=== PATIENT | male | born 1935 | race Caucasian/White ===

== ENCOUNTER 2016-10-18 12:48 | Day surgery (SDC) | payer MEDICARE, OTHER ==
[~2016-10-18] VITALS: Ht 170.2 cm; Wt 89.2 kg
[2016-10-18] VITALS (10 sets, daily range): BP systolic 132–146; BP diastolic 79–95; PULSE 56–76; RESP 11–19; O2SAT 90–98
[~2016-10-18 12:48] MED LIST: ASPI-628 PO; Ampicillin 2,000 mg/50 mL NS Minibag Plus IV SCH; CHOL200047 PO; DONE10TA5 PO; Dexamethasone 4 mg/mL Inj IVPUSH PRN; EPHEDrine Sulfate 50 mg/mL Inj IVPUSH PRN; FINA5TAB9 PO; FLUT15.88 NS; Gentamicin Inj 140 MG in Dextrose 5% 100 ML IV SCH; HYDROmorphone 1 mg/mL Inj IVPUSH PRN; Labetalol 5 mg/mL 4 mL Inj IV PRN; Lactated Ringer's 1,000 ML IV SCH; Lactated Ringer's 500 ML IV PRN; MetoCLOpramide 5 mg/mL 2 mL Inj IVPUSH PRN; Mitomycin Inj 40 MG in Syringe 1 EACH IRRIGATION PRN; OMEG300C3 PO; OMEP-113 PO; Phenylephrine 10,000 mCg/mL Inj IVPUSH PRN; SERT20OR6 PO; fentaNYL-PF 50 mCg/mL 2 mL Inj IVPUSH PRN; hydrALAZINE 20 mg/mL Inj IVPUSH PRN
[2016-10-18] MEDS ORDERED: Glycopyrrolate 0.2 MG/ML 1mL Inj ONE (12:49)
[2016-10-18] MEDS ORDERED: Propofol 10,000 mCg/mL 20 mL Inj ONE (12:49)
[2016-10-18] MEDS ORDERED: Dexamethasone 4 mg/mL Inj ONE (12:49)
[2016-10-18] MEDS ORDERED: Lidocaine PF 1% 30 mL Inj ONE (12:49)
[2016-10-18] MEDS ORDERED: Ketamine 10 mg/mL 20 mL Inj ONE (12:49)
[2016-10-18] MEDS ORDERED: fentaNYL-PF 50 mCg/mL 2 mL Inj ONE (12:49)
[2016-10-18] MEDS ORDERED: Ondansetron 2 mg/mL 2 mL Inj ONE (12:49)
[2016-10-18] MEDS ORDERED: Lactated Ringer's 1,000 ML IV ONE (13:18)
--- NOTE | 2016-10-18 14:38 | PCM.HPANE ---
Patient Data Date of Service: Oct 18, 2016 Surgeon Admitting Provider: Attending Provider:Malvin Hobson MD Primary Care Physician:Alexsander Chapman MD Other Provider:Gianni Us Anesthesia Reason for Visit Gross Hematuria, Bladder Tumor, Urethral Lesion Ht/WT & BMI Height (Feet): 5 Height (Inches): 7.00 Weight (Kilograms): 89.2 Body Mass Index 30.00 Allergies Coded Allergies: oxycodone (Verified Allergy, Severe, Rash, 10/15/16) No Known Allergies (Verified Allergy, Unknown, 09/28/14) Past Anesthesia History Anesthesia History: Denies:: Abnormal Airway, Anesthesia Reactions, Difficult Intubation, Fam Anesthesia Reaction, Fam Malignant Hypertherm, Malignant Hyperthermia Diabetes History Hx Diabetes?: No MRSA MRSA: No Medications Blood Thinner: Aspirin Last Dose Blood Thinner: Oct 12, 2016 Hypertension Medication: No Home Meds Incl Beta Kendall: No Reported Medications Finasteride 5 Mg Tablet5 Mg PO DAILY 30 Days Ref 0 10/15/16 Sertraline HCl (Sertraline)20 Mg/1 Ml Oral.conc25 Mg PO DAILY #1 BOTTLE Ref 0 10/15/16 Fluticasone Propionate 50 Mcg/Actuation [place].susp15.8 Ml NS 10/15/16 Donepezil (Aricept)10 Mg Bgvptu04 Mg PO HS Ref 0 10/15/16 Cholecalciferol (Vitamin D3) (Vitamin D3)2,000 Unit Capsule6,000 Unit PO DAILY 09/28/14 Omeprazole Magnesium (Omeprazole)20 Mg Capsule.dr20 Mg PO DAILY 30 Days Ref 0 09/28/14 [place]-3 Fatty Acids (Fish Oil)300 Mg Fxztkek544 Mg PO DAILY 09/28/14 Aspirin (Aspir 81)81 Mg Tablet.dr81 Mg PO DAILY Ref 0 09/28/14 Discontinued Reported Medications Loratadine 10 Mg Gzhpdc19 Mg PO DAILY 30 Days Ref 0 09/28/14 Azelastine/Fluticasone (Dymista Nasal [place])23 Gm [place].pump2 [place] NS BID 09/28/14 History History of ENT Problems?: No HEENT History: Positive for:: Cataracts (removed 1999) Hearing Problem Denies:: Abnormal Airway Difficult Intubation Dysphagia Glaucoma Sinus Problem TMJ Denture Type: Full- Upper Teeth Condition: Within Normal Limits Hx of Heart Problems?: Yes Cardiovascular History: Denies:: AICD Abdominal Aortic Aneurism Atrial Fibrillation Cardiac Surgery Chest Pain Congestive Heart Failure Coronary Artery Disease Edema Heart Murmur Hypertension Irregular Heartbeat Pacemaker Peripheral Vascular Rheumatic Fever Thrombophlebitis Valvular Heart Disease Hx of Respiratory Problem?: No Respiratory History: Denies:: Asthma COPD Cough Emphysema Hemoptysis Pneumonia Pulmonary Embolism Tuberculosis Hx Neurologic Problems?: Yes Neurological History: Positive for:: Dementia (ARICEPT ) Denies:: Alzheimer's Disease CVA Headaches Multiple Sclerosis Parkinson's Disease Seizures TIA Hx of GI Problems?: Yes Hx of Problems?: No Genitourinary History: Denies:: HX of Hemodialysis Kidney Stones Urinary Tract Infection HX of Peritoneal Dialysis: No Male Hx: Positive for:: Prostate Problems (surgery 5 yrs ago) Denies:: Scrotal Mass Testicular Surgery Skin History: Denies:: History Skin Disorders? Pressure Ulcers Hx Musculoskeletal Problems?: Yes Musculoskeletal History: Positive for:: Joint Replacement (Bilat KNEE replacement ) Denies:: Back Injury Degenerative Joint Fibromyalgia Musculoskeletal Trauma Myasthenia Gravis Osteoarthritis Rheumatoid Arthritis Systemic Lupus Hx of Psycho/Social Problems?: No Psycho Social History: Denies:: Anxiety Bipolar Disorder Hx Depression Suicide Attempt Hx Surgeries?: Yes (KNEE REPLACEMENT-R ) Hx Any Other Health Problems?: Yes Other History: Positive for:: Hospitalization Denies:: Cancer Endocrine Disease Thyroid Disease History Blood Transfusions: Positive for:: Accept Blood Products? Denies:: Blood Transfuse Reaction Blood Transfusions Hx Diabetes: No Hx Alcohol Use: NoHx Substance Use: No Smoking Status: Never Smoker Have You Smoked inLast 12 mo: No Stop/Bang S-Snoring: Do You Snore Loudly: Yes T-Tired: feel tired, fatigued: No O-Obsered: Observed not breath: Yes P-Blood Pressure: treated: No B- Body Mass Index > 35 kg/m2: No A- Age over 50: Yes N- Neck Large Circumference: No G- Gender Male: Yes LY Total Score: 4 LY Risk Assessment: High Risk, =/>3 Yes LY Category 2: Yes Risk Assessment Category Category 1A: Patient has history of documented sleep apnea, and HAS NOT received any narcotic, sedative or anesthesia administration during this stay. Category 1B: Patient has history of documented sleep apnea, and HAS received any narcotic , sedative or anesthesia administration during this stay Category 2: Patient has SUSPECTED Obstructive Sleep Apnea, and HAS received any narcotic , sedative or anesthesia administration during this stay. Category 3: Patient has SUSPECTED Obstructive Sleep Apnea and HAS NOT received narcotic, sedative or anesthesia administration during this stay. Category 4: Outpatient in Procedural Areas with known sleep apnea or who screen positive for High Risk via the STOP/BANG questionnaire. Exam Exam Vital Signs Vital Signs Date Time Temp Pulse Resp B/P Pulse Ox O2 Delivery O2 Flow Rate FiO2 10/18/16 13:21 18 97 Room Air 10/18/16 13:20 36 56 17 137/80 General Appearance: Alert, Oriented X3, Cooperative, No Acute Distress HEENT/AIRWAY: MP 2 Lungs: Clear to Auscultation, Normal Air Movement Heart: Exam Unremarkable, Regular Rate/Rhythm, No Murmurs/Rubs/Gallops Meds/Labs/Diagnostics Admission Meds Current Medications Lactated Ringer's (Lr) 1,000 ml @ ud STK-MED ONCE IV Last administered on t 13:18; Start 10/18/16 at 13:18; Stop 10/18/16 at 13:19; Status DC Plan Impression Patient chart reviewed, patient interviewed and anesthestic plan with risks, benefits, and alternatives discussed, and informed consent obtained. NPO per Anesth. Guidelines: Yes ASA Physical Status: ASA2 Mod Systemic Disease Anesthetic Plan: GA Bene/Risks/Altern/Consents: Yes HP Complete Prior to Induction: Yes Aric Silver MD Oct 18, 2016 14:38
[2016-10-18] MEDS ORDERED: Belladonna Alk-Opium 60 mg Rectal Suppository RECTAL ONE ×2 (15:27→15:28)
--- NOTE | 2016-10-18 15:51 | PCM.SURGPO ---
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 1-1.5cm papillary and sessile bladder tumor on R inferolateral wall, no bladder calculi, and B/L ureteral orifices in normal position. Bladder tumor and prostatic urethral lesions were resected using bipolar loop electrocautery. Mitomycin intravesical instillation was performed at the end of the case. Complications There were no periprocedural complications identified. Surgical Specimen Removed: Yes Specimen sent to Pathology: Yes Surgical Specimen description: R inferolateral wall bladder tumor, prostatic urethral lesions Anesthetic Administered: GA Grafts, Implants: Other (20F Rojas catheter clamped) Output, Estimated Blood Loss: 5 Blood Admin during surgery: No Additional information Patient to be discharged home with Rojas catheter when stable, to return to see me in 6-7 days for post-op visit and trial of void. Malvin Hobson MD Oct 18, 2016 15:51
[2016-10-18] MEDS: Ondansetron 2 mg/mL 2 mL Inj IVPUSH PRN ×2 (16:04→16:35)
--- NOTE | 2016-10-18 16:36 | PCM.DISURG ---
Surgical Discharge Instruction Date of Service Oct 18, 2016 Dates of Hospitalization Date of Hospital Admission Oct 18, 2016 Providers Admitting Physician: Malvin Hobson MD Primary Care Physician: Alexsander Chapman MD Attending Physician: Malvin Hobson MD Discharge Diagnosis Discharge Diagnosis Bladder tumor, prostatic urethral lesions Post Operative diagnosis Bladder tumor, prostatic urethral lesions Diet Discharge Diet: No restrictions, Other (Drink at least 10-12 8oz. glasses (3 liters) of fluids per day as long as there is blood in the urine) Activity Discharge Activity-General: No driving while taking narcotic, Other (No strenuous exercise/activity, moderate or heavy lifting (>10 lbs.), or straining for 1-2 weeks) Dressing and Incisional Care Hygiene: May shower Follow Up Plan Follow-up Provider (F9): Malvin Hobson MD Follow-up appointment: Days (6-7 days for post-op visit and trial of void) Call your provider for: Fever, Chills, Vomiting, Other (Non-draining Rojas catheter, pain uncontrolled by pain medications) Malvin Hobson MD Oct 18, 2016 16:36
[2016-10-18] MEDS ORDERED: HYDROcodone-APAP 5-325 mg Tablet PO PRN (16:40)
--- NOTE | 2016-10-18 17:30 | PCM.ANEP1 ---
Post Anesthesia PACU Phase 1 Assessment Vital Signs Vital Signs Date Time Temp Pulse Resp B/P Pulse Ox O2 Delivery O2 Flow Rate FiO2 10/18/16 16:26 60 19 138/92 95 Room Air 10/18/16 16:15 36.3 70 12 146/95 96 Nasal Cannula 2 10/18/16 16:05 65 11 138/90 96 Nasal Cannula 2 10/18/16 16:00 66 12 143/90 98 Nasal Cannula 2 10/18/16 15:55 61 12 132/90 98 Nasal Cannula 3 10/18/16 15:50 76 14 138/79 97 Nasal Cannula 3 10/18/16 15:48 36.3 74 13 140/88 90 Room Air 10/18/16 13:21 18 97 Room Air 10/18/16 13:20 36 56 17 137/80 Anesthetic Administered: GA Level of Alertness: Awake, talking Pain: No Nausea or Vomiting: No CV Function & Hydration Stable: Yes Airway Device: Oxygen Delivery: Room Air Lungs: Clear to Auscultation, Normal Air Movement PACU Phase 2 Assessment Complications: No Follow up Care: No Patient Instructions Provided: N/A Aric Silver MD Oct 18, 2016 17:29
--- NOTE | 2016-10-19 20:20 | OP ---
[address] [address] OPERATIVE REPORT PATIENT: JOHN BOUCHER : 1935 MR#: [id number] ADMIT: 10/18/2016 JOB ID: [id number] DATE OF SURGERY: 10/18/2016 SURGEON: Malvin Hobson MD COMPOUNDER: None. PREOPERATIVE DIAGNOSIS(ES): Bladder tumor, prostatic urethral lesions. POSTOPERATIVE DIAGNOSIS(ES): Bladder tumor, prostatic urethral lesions. PROCEDURE: 1. Cystoscopy. 2. Transurethral resection of bladder tumor (1-2 cm), prostatic urethral biopsy, and mitomycin intravesical instillation. ANESTHESIA: General. ESTIMATED BLOOD LOSS: 5 mL. SPECIMENS: Right inferolateral wall bladder tumor, prostatic urethral lesions. DRAINS: 20-Tunisian Rojas catheter, clamped. COMPLICATIONS: None. CONDITION: Stable. FINDINGS: Cystoscopy revealed moderate to severe bilobar prostatic hypertrophy with prostatic varices (with no active bleeding), several small frondish prostatic urethral lesions (at six o'clock, near verumontanum), moderately trabeculated bladder, approximately 1-1.5 cm papillary and sessile bladder tumor on right inferolateral wall, no bladder calculi, and bilateral ureteral orifices in normal position. Bladder tumor and prostatic urethral lesions were resected using bipolar loop electrocautery. Mitomycin intravesical instillation was performed at the end the case. INDICATIONS: The patient is a 81-year-old male found on office cystoscopy to have bladder tumor and prostatic urethral lesions. The patient now presents for cystoscopy, transurethral resection of bladder tumor, prostatic urethral biopsy, and mitomycin intravesical instillation. PROCEDURE: The patient was brought to the operating room and placed supine on the operating room table. The patient was given ampicillin and gentamicin IV antibiotics. Sequential compression device boots were placed. General anesthesia was administered. The patient was brought down into the dorsal lithotomy position. The patient was prepped and draped in the standard surgical fashion. A 26-Tunisian continuous-flow resectoscope was placed through the urethral meatus and into the distal urethra without difficulty without difficulty. Cystoscopy revealed moderate to severe bilobar prostatic hypertrophy with prostatic varices (with no active bleeding), several small frondish prostatic urethral lesions (at six o'clock, near verumontanum), moderately trabeculated bladder, an approximately 1-1.5 cm papillary and sessile bladder tumor on the right inferolateral wall, no bladder calculi, and bilateral ureteral orifices in normal position. The bladder tumor was resected in its entirety using Thunderbeat bipolar loop electrocautery; then, the prostatic urethral lesions were resected in their entirety using bipolar loop electrocautery. Bladder tumor and prostatic urethral lesions were sent to pathology for permanent specimen. The base of the bladder tumor resected area, and the prostatic urethral biopsied area, including normal surrounding bladder mucosa and normal surrounding prostatic urethral mucosa, were fulgurated using bipolar loop electrocautery. After fulguration was performed, excellent hemostasis was achieved. No evidence for bladder perforation was seen. Bilateral ureteral orifices were seen to be intact and well preserved at the end of the case. Mitomycin intravesical instillation was performed at the end of the case. First, the continuous flow resectoscope was removed from the patient. A 20-Tunisian Rojas catheter was placed through the urethra and into the bladder without difficulty. The Rojas catheter balloon was inflated with 10 mL of sterile water. Rojas catheter was initially placed to straight drainage and the bladder was allowed to completely drain via the Rojas catheter. Then mitomycin intravesical instillation was performed, specifically mitomycin solution was instilled into the bladder via the Rojas catheter. The Rojas catheter was clamped with a Rojas catheter plug. The skin was cleaned and dried. The patient was placed in the supine position. The patient was awakened from general anesthesia and transferred to the recovery room in stable condition. The patient tolerated the procedure well. Mitomycin intravesical instillation was performed for a period of 1 hour and mitomycin solution was allowed to drain out of the patient's bladder via the Rojas catheter after 1 hour. The plan is for the patient to be discharged home with the Rojas catheter when stable and to return to see me in the office in 6-7 days for a postoperative visit and a trial of void.
--- NOTE | 2016-10-25 09:32 | PATH ---
SURGICAL PATHOLOGY Attending Physician:Malvin Hobson MD CASE STATUS: Signed Out PATIENT NAME: JOHN BOUCHER PID: [id number] : 1935 DATE COLLECTED:10/18/2016 00:00 SPECIMEN: 1: Bladder, Biopsy 2: Urethra, Biopsy CLINICAL HISTORY: GROSS HEMATURIA BLADDER TUMOR, URETHRAL LESION 1). RIGHT INFERIOR LATERAL WALL, BLADDER TUMOR 2). PROSTATIC URETHRAL LESION FINAL DIAGNOSIS: 1.RIGHT INFERIOR LATERAL WALL BLADDER TUMOR: LOW-GRADE PAPILLARY UROTHELIAL CARCINOMA, NONINVASIVE. NO LAMINA PROPRIA OR MUSCULARIS PROPRIA INVASION IDENTIFIED. 2.PROSTATIC URETHRAL LESION: BENIGN MUCOSA WITH INFLAMMATORY CHANGES AND REACTIVE POLYPOID HYPERPLASIA. No evidence of neoplasia. Multiple microscopic levels examined. ICD10 C67.2 NOTE: As part of a routine quality improvement engineer, the bladder wall biopsy tumor was reviewed by Dr. Marry Sweeney, who concurs with the diagnosis. GROSS DESCRIPTION: Received two formalin-filled containers, both labeled with the patient' s name: 1. In a container labeled "R inferior lateral bladder wall tumor", the specimen consists of three dark pink-guaman, rough, irregular-shaped portions of tissue which aggregate to 0.7 x 0.5 x 0.5 cm. The specimen is entirely submitted in cassette 1A. 2. In a container labeled "prostatic urethra lesion", the specimen consists of a 0.6 x 0.4 x 0.3 cm portion of tissue, entirely submitted in cassette 2A. ([id number]) MICRO DESCRIPTION: See diagnosis. ICD-9 CODES: CPT CODES: 1: 63950 2: 63198 Electronically Signed Out Radha Fair MD [facility] Pathology [facility], [place] [address] Technical component performed at [facility], [address] [place] [address] [address], [place], [address]
== END 2016-10-18 23:59 | disposition home or self-care (01) ==
LOC: SAS 12:48
PROVIDERS: ATTEND Urology
PROC: 0TBB8ZZ Excision of Bladder, Via Natural or Artificial Opening Endoscopic (ICD-10-PCS; principal; 2016-10-18 14:45)
PROC: 0TBD8ZX Excision of Urethra, Via Natural or Artificial Opening Endoscopic, Diagnostic (ICD-10-PCS; 2016-10-18 14:45)
DX: C67.2 Malignant neoplasm of lateral wall of bladder (principal); R31.0 Gross hematuria; N36.9 Urethral disorder, unspecified; N40.3 Nodular prostate with lower urinary tract symptoms; Z80.42 Family history of malignant neoplasm of prostate; Z87.891 Personal history of nicotine dependence; G47.33 Obstructive sleep apnea (adult) (pediatric)
CPT/HCPCS: 52224; 52234; 88305; J0290; J1100; J1580; J2250; J2405; J2765; J3010; J7120